=== PATIENT | female | born 1975 | race African-American/Black ===

== ENCOUNTER 2019-12-01 11:32 | Emergency (ER) | payer OTHER, MEDICAID ==
[~2019-12-01] VITALS: Ht 162.6 cm; Wt 49.0 kg
[~2019-12-01 11:32] MED LIST: TRAM50TA3 PO; TRAZ-251 PO; ZIPR20CA12 PO
[2019-12-01] MEDS ORDERED: SODIUM CHLORIDE 0.9% 1,000 ML IV ONE (11:49)
[2019-12-01] MEDS ORDERED: ONDANSETRON HCL 4MG/2ML INJ IV STA (11:49)
[2019-12-01] MEDS ORDERED: KETOROLAC 30MG/ML VIAL IV STA (11:49)
[2019-12-01 12:57] LABS: BASOPHILS % 0.4 % (0.0-2.0); EOSINOPHILS % 0.2 % (0.0-5.0); HEMATOCRIT. 46.7 % (36.0-48.0); HEMOGLOBIN. 16.1 g/dL (12.0-16.0); LYMPHOCYTES % 16.2 % (20.0-50.0); MEAN CORPUSCULAR HEMOGLOBIN 36.1 pg (28.0-32.0); MEAN PLATELET VOLUME 10.4 fl (7.4-10.4); MONOCYTES % 2.3 % (2.0-8.0); NEUTROPHILS % 80.9 % (40.0-76.0); PLATELET 165 x1000/uL (130-400); RED BLOOD CELL COUNT 4.45 mill/uL (4.2-5.4)
[2019-12-01] MEDS ORDERED: FENTANYL CITRATE/PF 50MCG/ML 2ML VIAL IV ONE (13:00)
[2019-12-01 13:06] LABS: CHLORIDE 108 mEq/L (98-107)
[2019-12-01 13:28] LABS: HCG SCREEN NEGATIVE
[2019-12-01] MEDS ORDERED: CLONIDINE 0.2MG TABLET PO NR (14:30)
[2019-12-01] MEDS ORDERED: HALOPERIDOL LACTATE 5MG/ML VIAL IM ONE (15:15)
[2019-12-01 16:10] VITALS: BP 188/108
== END 2019-12-01 16:20 | disposition short-term general hospital (02) ==
LOC: ER 11:32
DX: R10.84 Generalized abdominal pain (principal); I10 Essential (primary) hypertension; G89.29 Other chronic pain; R10.30 Lower abdominal pain, unspecified; R11.2 Nausea with vomiting, unspecified; R19.7 Diarrhea, unspecified; Z88.6 Allergy status to analgesic agent; Z88.8 Allergy status to other drugs, medicaments and biological substances
CPT/HCPCS: 36415; 80053; 83690; 84703; 85025; 96361; 96374; 96375; 99285; J1885; J2405; J3010; J7030

== ENCOUNTER 2025-02-24 12:07 | Emergency (ER) | payer OTHER, MEDICAID ==
[~2025-02-24] VITALS: Ht 160 cm; Wt 68.0 kg
[~2025-02-24 12:07] MED LIST changes: +ACET-2708 MT; +AMLO10TA80 PO
[2025-02-24 12:10] VITALS: BP 119/76; PULSE 83; RESP 17; TEMP 36.6; O2SAT 99
[2025-02-24] MEDS ORDERED: LORAZEPAM 1MG TABLET PO ONE (13:45)
[2025-02-24] MEDS ORDERED: OLANZAPINE 5MG TABLET ODT PO ONE (13:45)
[2025-02-24] MEDS ORDERED: HALOPERIDOL LACTATE 5MG/ML VIAL IM STA (14:34)
[2025-02-24] MEDS ORDERED: LORAZEPAM 2MG/ML INJ IM STA (14:34)
[2025-02-24] MEDS ORDERED: LORAZEPAM 2MG/ML UD SYRINGE IM SCH (14:45)
[2025-02-24 15:44] LABS: BASOPHILS % 0.8 % (0.0-2.0); DIFFERENTIAL COMMENT 0; EOSINOPHILS % 0.5 % (0.0-5.0); HEMATOCRIT. 34.1 % (36.0-48.0); HEMOGLOBIN. 11.5 g/dL (12.0-16.0); LYMPHOCYTES % 25.5 % (20.0-50.0); MEAN CORPUSCULAR HEMOGLOBIN 34.5 pg (28.0-32.0); MEAN CORPUSCULAR HGB CONC 33.7 g/dL (31.0-37.0); MEAN CORPUSCULAR VOLUME 102.5 fL (81.0-99.0); MONOCYTES % 3.4 % (2.0-8.0); NEUTROPHILS % 69.8 % (40.0-76.0); PLATELET 201 x1000/uL (130-400); RED BLOOD CELL COUNT 3.33 mill/uL (4.2-5.4); RED CELL DISTRIBUTION WIDTH 13.4 % (11.6-14.6); WHITE BLOOD COUNT 10.7 x1000/uL (4.5-11.0)
[2025-02-24 15:48] LABS: CARBON DIOXIDE 25 mEq/L (21-32); CHLORIDE 107 mEq/L (98-107); POTASSIUM 4.4 mEq/L (3.5-5.1); SODIUM 141 mEq/L (136-145)
[2025-02-24 15:49] LABS: CALCIUM 9.8 mg/dL (8.7-10.4)
[2025-02-24 15:53] LABS: CREATININE 0.8 mg/dL (0.6-1.0); GLUCOSE 162 mg/dL (70-105)
[2025-02-24 15:54] LABS: ETHANOL BLOOD < 10 mg/dL (<10); UREA NITROGEN BLOOD 6 mg/dL (9-23)
== END 2025-02-24 14:45 | disposition left against medical advice (07) ==
LOC: ER 12:07
DX: I10 Essential (primary) hypertension (principal); Z59.00 Homelessness unspecified; F20.9 Schizophrenia, unspecified; Z79.01 Long term (current) use of anticoagulants; Z79.02 Long term (current) use of antithrombotics/antiplatelets; Z79.899 Other long term (current) drug therapy; Z86.718 Personal history of other venous thrombosis and embolism; Z88.5 Allergy status to narcotic agent; Z88.6 Allergy status to analgesic agent
CPT/HCPCS: 36415; 80048; 80320; 85025; 99283; J2060; G0480

== ENCOUNTER 2025-03-08 17:08 | Emergency (ER) | payer OTHER, MEDICAID ==
[~2025-03-08] VITALS: Ht 160 cm; Wt 44.0 kg
[2025-03-08 17:10] VITALS: PULSE 100; RESP 18; O2SAT 99
[2025-03-08 17:11] VITALS: BP 135/82; TEMP 37.1; O2SAT 100
== END 2025-03-08 18:14 | disposition left against medical advice (07) ==
LOC: ER 17:08
DX: M79.645 Pain in left finger(s) (principal); I10 Essential (primary) hypertension; Z98.890 Other specified postprocedural states; Z53.21 Procedure and treatment not carried out due to patient leaving prior to being seen by health care provider